=== PATIENT | male | born 1960 | race African-American/Black ===

== ENCOUNTER 2016-12-30 03:38 | Emergency (ER) | payer OTHER ==
[2016-12-30] MEDS ORDERED: KETOROLAC TROMETHAMINE 60 MG/2 ML SDV IM ONE (07:48)
--- NOTE | 2016-12-30 07:54 | ER Document Report ---
ED Hip Pain/Injury - General Chief Complaint: Hip Pain Stated Complaint: PAIN IN HIP AND BACK Mode of Arrival: Ambulatory Information source: Patient TRAVEL OUTSIDE OF THE [place] IN LAST 30 DAYS: No - HPI Patient complains to provider of: Pain, Hip Occurred: Last week Where: Home Onset/Duration: Gradual Quality of pain: Achy Severity: Moderate Skin Color: Normal Skin Temperature: Warm Use of anticoagulant: No: Lovenox, Plavix, Pradexa, Warfarin Associated Symptoms: denies: Loss of control/bowel, Loss of control/bladder, Motor loss, Sensory loss Notes: Patient presents with complaints of low back and right hip pain. Patient states he attempted to move something that was very heavy, and started having the pain since then. He does report a history of low back pain. He is in town from [place] for a business meeting. He denies any traumatic injury or fall. He denies any numbness tingling or weakness. Denies any fever. He denies any abdominal pain. He denies any bowel or bladder dysfunction. No blood thinners , no IV drug use. He denies any dysuria, hematuria. No nausea, vomiting, diarrhea. No chest pain or shortness of breath. His no other complaints at this time. - Related Data Allergies/Adverse Reactions: No Known Allergies Allergy (Verified 12/30/16 03:42) Home Medications: Current Home Medications Lisinopril/Hydrochlorothiazide [Lisinopril-Hctz 10-12.5 mg Tab] 1 tab PO DAILY 12/30/16 [History] Past Medical History - Social History Smoking Status: Unknown if Ever Smoked Family History: Reviewed & Not Pertinent Patient has suicidal ideation: No Patient has homicidal ideation: No Renal/ Medical History: Denies: Hx Peritoneal Dialysis Review of Systems - Review of Systems -: Yes All other systems reviewed and negative Physical Exam - Vital signs Vitals: Temp Pulse Resp BP Pulse Ox 98.3 F 75 16 133/92 H 96 12/30/16 03:43 12/30/16 03:43 12/30/16 03:43 12/30/16 03:43 12/30/16 03:43 Interpretation: Normal - General General appearance: Appears well, Alert - HEENT Head: Normocephalic, Atraumatic Eyes: Normal Mouth/Lips: Normal Mucous membranes: Normal Neck: Normal - Respiratory Respiratory status: No respiratory distress Breath sounds: Normal - Cardiovascular Rhythm: Regular Heart sounds: Normal auscultation Murmur: No - Abdominal Inspection: Normal Distension: No distension Tenderness: Nontender Organomegaly: No organomegaly Notes: No mass, no pulsatile mass. - Back Back: Normal, Nontender - Extremities General upper extremity: Normal inspection, Nontender, Normal color, Normal ROM , Normal temperature General lower extremity: Normal inspection, Tender - Tenderness to palpation of the right SI joint. Full range of motion of the lower extremities bilaterally. , Normal color, Normal ROM, Normal temperature, Normal weight bearing. No: Raji's sign - Neurological Neuro grossly intact: Yes Cognition: Normal Orientation: AAOx4 Speech: Normal Motor strength normal: LUE, RUE, LLE, RLE Sensory: Normal, Other - No saddle anesthesia Knee - Reflex grade: 2 = Normal Ankle - Reflex grade: 2 = Normal - Psychological Associated symptoms: Normal affect, Normal mood - Skin Skin Temperature: Warm Skin Moisture: Dry Skin Color: Normal Course - Re-evaluation Re-evalutation: 12/30/16 07:53 The patient is noted to have elevated blood pressure during today's emergency department visit. The patient was informed of this finding. The patient was instructed that this may be related to pre-hypertension and requires further evaluation with a primary care provider. The patient has no hypertensive symptoms at this time. Patient arrives with complaints of low back and right hip pain. There is no trauma. Is no sign or risk of cauda equina or epidural abscess or bleed. He is completely normal neurological exam at this time. No signs of infection. This point the patient likely has low back/sacral strain. The patient will be discharged home with NSAIDs and Ultram. Follow up if not better in one week, sooner for increased pain, fever, weakness, difficulty controlling bowels or bladder, or any further concerns. - Vital Signs Vital signs: Temp Pulse Resp BP Pulse Ox 98.3 F 75 16 133/92 H 96 12/30/16 03:43 12/30/16 03:43 12/30/16 03:43 12/30/16 03:43 12/30/16 03:43 Discharge - Discharge Clinical Impression: Sacroiliitis Condition: Stable Disposition: HOME, SELF-CARE Instructions: Low Back Pain ([facility]) Additional Instructions: Take medications as prescribed. Avoid heavy lifting. C-reactive. Follow up if not better in one week, sooner for increased pain, fever, difficulty controlling her bowels or bladder, abdominal pain, or any further concerns. Prescriptions: Diclofenac Sodium [Voltaren] 75 mg PO BID #20 tablet. Tramadol HCl [Ultram] 50 mg PO TID PRN #10 tablet PRN Reason: Forms: Elevated Blood Pressure
[2016-12-30 08:07] VITALS: BP 141/84
== END 2016-12-30 08:07 | disposition home or self-care (01) ==
LOC: ER 03:38
DX: M46.1 Sacroiliitis, not elsewhere classified (principal); M25.551 Pain in right hip; M54.9 Dorsalgia, unspecified; M54.5 Low back pain; Z79.899 Other long term (current) drug therapy
CPT/HCPCS: 99283; 96372; J1885